=== PATIENT | female | born 1955 | race Caucasian/White ===

== ENCOUNTER → 2017-07-26 | Day surgery (SDC) | payer BC ==
[2017-07-25 14:22] LABS: ANION GAP 17.5 mmol/L (8-16); BLOOD UREA NITROGEN 14 mg/dL (7-26); BUN/CREATININE RATIO 15 (6-25); CALCIUM 9.9 mg/dL (8.4-10.2); CARBON DIOXIDE 22 mmol/L (22-29); CHLORIDE 104 mmol/L (98-107); CREATININE, SERUM 0.92 mg/dL (0.57-1.11); EST GLOMERULAR FILTRATION RATE > 60 ML/MIN (60-); GLUCOSE 268 mg/dL (74-118); POTASSIUM 4.5 mmol/L (3.5-5.1); SODIUM 139 mmol/L (136-145)
[~2017-07-26] MED LIST: BUPIVACAINE HCL 0.5% 10ML MPF VIAL INJ ONE; BYSTOLIC5 MG PO; CITALOPRAM HBR20 MG PO; FENTANYL CITRATE/PF 100MCG/2 ML INJ ONE; FOLIC ACID1 MG PO; GENTAMICIN 80MG/NS 100 ML 200 ML IV ONE; HUMIRA; INSULIN REGULAR, HUMAN 100 UNIT/1 ML 3ML VIAL ONE; LEVOTHYROXINE200 MCG PO; LIDOCAINE 2% /EPINEPHRINE 20 ML SDV INJ ONE; LIDOCAINE HCL 2% LOCAL INJ 5 ML SDV VIAL INJ ONE; LOSARTAN POTASS25 MG PO; MEPERIDINE HCL INJ 50 MG/ML INJ ONE; MIDAZOLAM HCL 2 MG/2 ML VIAL ONE; MONTELUKAST SOD10 MG PO; NOVOLIN INJ; NOVOLOG100 UNITS1 INJ; OXYBUTYNIN CHLOR5 MG PO; PROBIOTIC PO; PROPOFOL IV EMULSION 10 MG/ML 20 ML VIAL ONE; SIMVASTATIN10 MG PO; VANCOMYCIN 1GM/NS 250 ML 250 ML ONE; VERAPAMIL ER120 MG PO; VITAMIN D PO
--- NOTE | 2017-09-22 06:47 | Operative Report ---
DATE OF PROCEDURE: July 26, 2017 PREOPERATIVE DIAGNOSIS: Refractory urge incontinence. POSTOPERATIVE DIAGNOSIS: Refractory urge incontinence. OPERATIONS PERFORMED 1. Complete InterStim system implantation with incision and implantation of tined quadripolar lead electrodes into the right foramen S3. 2. Fluoroscopic guidance for needle placement. 3. Subcutaneous implantation of sacral nerve neurostimulator. 4. Electronic analysis and complex programming. 5. Implantation of tined quadripolar lead electrodes into the left foramen S3. 6. Removal of tined quadripolar electrodes from the left foramen S3. ANESTHESIA: General. COMPLICATIONS: None. CLINICAL SUMMARY: Jaycee Soto is a 62-year-old woman with refractory urge incontinence. She has failed multiple medications, as well as behavioral therapy. She underwent InterStim testing percutaneously in the office and had an excellent response. She elected to proceed with implantation as planned. She is aware of the risks of bleeding, infection, injury to adjacent structures, persistent incontinence, need for additional procedures, and the fact that she will not be able to undergo MRI testing. She understood all these risks and elected to proceed. OPERATIVE PROCEDURE IN DETAIL: Informed consent was verified. Jaycee Soto was properly identified and taken to the operating room, and placed on the operating table in the prone position with all pressure points carefully well-padded. Pillows were placed under the lower abdomen to flatten the sacrum and under the shins to allow the toes to dangle freely. The patient's back and buttocks were prepared and draped in the usual sterile fashion. Marcaine and lidocaine with epinephrine were utilized in combination. A needle was then introduced into the left foramen S3. Depth of the needle was confirmed and adjusted fluoroscopically. Proper needle position was confirmed with direct observation and lifting of the perineum or "bellowing" and observation with plantar flexion of the great toe utilizing the test stimulator box. The needle stylette was then removed. The directional guidewire was then placed and confirmed fluoroscopically. The foramen needle was then removed. An incision was then made peripherally to the directional guidewire through the fascial layer. The dilator and introducer sheath were then placed over the directional guidewire and directed into the foramen until the opaque marker of the dilator was seen midway through the sacrum. The needle stylette was removed and directional guidewire was then placed and confirmed fluoroscopically. The foramen needle was then removed. An incision was then made peripherally to the directional guidewire. The dilator and introducer sheath were then placed over the directional guidewire and directed into the foramen until the opaque marker of the dilator was seen midway through the sacrum. The dilator and obturator was unlocked and removed. The lead was then placed through the introducer sheath to the 1st white line. Position was checked fluoroscopically. The lead was then further introduced until 3 electrodes were visible below the sacrum. Each lead then tested with the above responses. After satisfactory position was confirmed under continuous fluoroscopy, the introducer sheath was retracted partially. Each lead was then tested. At this point in time, although we had an excellent response with the initial testing of the needle, the lead did not seem to elicit the appropriate responses in the same degree. We felt uneasy about this lead being less than ideal. Therefore, decided at this point in time to explant the lead we just put in the patient and removed the introducer sheath as well. This entire maneuver with introducing of a new needle was now done in the right hand side. We followed all the same steps on the right hand side. However, once the lead was then placed through the introducer sheath, we had excellent responses from all 4 leads. Thus, we were satisfied that this was a fa superior lead placement. Under continuous fluoroscopy, the introducer sheath was retracted thus deploying the lead tines into the parasacral tissue. Further incision was then made in the subcutaneous tissues on the right hand side posterior to the iliac crest, and a pocket was created. Hemostasis was verified and achieved with electrocautery. Tunneling tool was then utilized to bring the lead to the pocket site. The lead was then cleansed of bodily fluids thoroughly with sterile water and it was dried thoroughly, and then placed into the pulse generator header with the metal bands aligned and the blue tip clearly visible in the distal portion of the pulse generator header. The single set screw was tightened with a hex wrench. Copious irrigation was performed of all 3 incisions. The pulse generator was then placed in the subcutaneous pocket and the programming head was then placed over the implanted neurostimulator. All impedance parameters were within acceptable limits in all leads. We then approximated all incisions in 2 layers utilizing absorbable suture. Mastisol and Steri-Strips were applied. Bio-occlusive dressings were applied. The patient was uneventfully reversed from anesthesia and taken to the recovery room in stable condition. There were no complications to the procedure. The patient tolerated the procedure well. Sponge, needle and instrument counts were correct times 2 at the end of the case. Estimated blood loss was minimal. Explicit postoperative instructions were given. Utilizing the clinician javascript programmer, the patient was programmed to the lead of optimum sensation and given explicit instructions on utilizing the patient javascript programmer prior to discharge. Job#: [id number] RI cc: DR. PRABHA MOREAU
--- NOTE | 2017-09-22 07:07 | Operative Report ---
DATE OF PROCEDURE: July 26, 2017 ADDENDUM The needle stylette was removed and directional guidewire was then placed and confirmed fluoroscopically. The foramen needle was then removed. An incision was then made peripherally to the directional guidewire. The dilator and introducer sheath were then placed over the directional guidewire and directed into the foramen until the opaque marker of the dilator was seen midway through the sacrum. The dilator and obturator was unlocked and removed. The lead was then placed through the introducer sheath to the 1st white line. Position was checked fluoroscopically. The lead was then further introduced until 3 electrodes were visible below the sacrum. Each lead then tested with the above responses. After satisfactory position was confirmed under continuous fluoroscopy, the introducer sheath was retracted partially. Each lead was then tested. At this point in time, although we had an excellent response with the initial testing of the needle, the lead did not seem to elicit the appropriate responses in the same degree. We felt uneasy about this lead being less than ideal. Therefore, decided at this point in time to explant the lead we just put in the patient and removed the introducer sheath as well. This entire maneuver with introducing of a new needle was now done in the right hand side. We followed all the same steps on the right hand side. However, once the lead was then placed through the introducer sheath, we had excellent responses from all 4 leads. Thus, we were satisfied that this was a fa superior lead placement. Under continuous fluoroscopy, the introducer sheath was retracted thus deploying the lead tines into the parasacral tissue. Further incision was then made in the subcutaneous tissues on the right hand side posterior to the iliac crest, and a pocket was created. Hemostasis was verified and achieved with electrocautery. Tunneling tool was then utilized to bring the lead to the pocket site. The lead was then cleansed of bodily fluids thoroughly with sterile water and it was dried thoroughly, and then placed into the pulse generator header with the metal bands aligned and the blue tip clearly visible in the distal portion of the pulse generator header. The single set screw was tightened with a hex wrench. Copious irrigation was performed of all 3 incisions. The pulse generator was then placed in the subcutaneous pocket and the programming head was then placed over the implanted neurostimulator. All impedance parameters were within acceptable limits in all leads. We then approximated all incisions in 2 layers utilizing absorbable suture. Mastisol and Steri-Strips were applied. Bio-occlusive dressings were applied. The patient was uneventfully reversed from anesthesia and taken to the recovery room in stable condition. There were no complications to the procedure. The patient tolerated the procedure well. Sponge, needle and instrument counts were correct times 2 at the end of the case. Estimated blood loss was minimal. Explicit postoperative instructions were given. Utilizing the clinician mastercam programmer, the patient was programmed to the lead of optimum sensation and given explicit instructions on utilizing the patient mastercam programmer prior to discharge. Job#: [id number] TARA
== END | disposition home or self-care (01) ==
LOC: OR 09:09
PROVIDERS: ATTEND Urology
DX: N39.41 Urge incontinence (principal); N32.81 Overactive bladder; R35.1 Nocturia; G47.33 Obstructive sleep apnea (adult) (pediatric); I10 Essential (primary) hypertension; E11.9 Type 2 diabetes mellitus without complications; J45.909 Unspecified asthma, uncomplicated; M06.9 Rheumatoid arthritis, unspecified; E03.9 Hypothyroidism, unspecified; K21.9 Gastro-esophageal reflux disease without esophagitis; E66.01 Morbid (severe) obesity due to excess calories; F41.9 Anxiety disorder, unspecified; Z01.812 Encounter for preprocedural laboratory examination; Z79.4 Long term (current) use of insulin; Z68.43 Body mass index [BMI] 50.0-59.9, adult
CPT/HCPCS: 64581; 64590; 95972; C1778; L8679; 36415; 76001; 80048; 82948; J1580; J2001; J2175; J2250; J3370

== ENCOUNTER → 2017-12-12 | Outpatient (CLI) | payer BC ==
[~2017-12-12] MED LIST changes: -BUPIVACAINE HCL 0.5% 10ML MPF VIAL INJ ONE; -FENTANYL CITRATE/PF 100MCG/2 ML INJ ONE; -GENTAMICIN 80MG/NS 100 ML 200 ML IV ONE; -INSULIN REGULAR, HUMAN 100 UNIT/1 ML 3ML VIAL ONE; -LIDOCAINE 2% /EPINEPHRINE 20 ML SDV INJ ONE; -LIDOCAINE HCL 2% LOCAL INJ 5 ML SDV VIAL INJ ONE; -MEPERIDINE HCL INJ 50 MG/ML INJ ONE; -MIDAZOLAM HCL 2 MG/2 ML VIAL ONE; -PROPOFOL IV EMULSION 10 MG/ML 20 ML VIAL ONE; -VANCOMYCIN 1GM/NS 250 ML 250 ML ONE
--- NOTE | 2017-12-12 15:53 | Diagnostic Imaging Report ---
PROCEDURE:X-RAY PELVIS, AP VIEW COMPARISON:None. INDICATIONS:NOCTURIA FINDINGS: Normal mineralization. No acute, displaced fracture or dislocation. Left total hip replacement. Moderate degenerative changes in the right hip joint. Mild degenerative changes in bilateral sacroiliac joints. Partially visualized neural stimulator projecting in the right pelvic/gluteal soft tissues, with wire traversing the right S3-S4 neural foramen. Pelvic phleboliths. CONCLUSION: Partially visualized neural stimulator projecting in the right pelvic/gluteal soft tissues, with wire traversing the right S3 neural foramen. Jaron Dougherty M.D. Dictated by: Jaron Dougherty M.D. on 12/12/2017 at 15:57 Electronically approved by: Jaron Dougherty M.D. on 12/12/2017 at 15:57
--- NOTE | 2017-12-12 15:54 | Diagnostic Imaging Report ---
PROCEDURE:SACRUM X-RAY INDICATION:Nocturia COMPARISON:None. FINDINGS: No acute bony abnormalities. Degenerative changes in the sacroiliac joints. Degenerative disc and joint changes at L5-S1. Partially visualized neural stimulator with wire traversing the right S3 neural foramen. Pelvic phleboliths. Partially visualized left total hip replacement. CONCLUSION: Partially visualized neural stimulator with wire traversing the right S3 neural foramen. Jaron Dougherty M.D. Dictated by: Jaron Dougherty M.D. on 12/12/2017 at 15:59 Electronically approved by: Jaron Dougherty M.D. on 12/12/2017 at 15:59
== END ==
LOC: RAD 14:36
PROVIDERS: ATTEND Urology
DX: R35.1 Nocturia (principal); N32.81 Overactive bladder; R81 Glycosuria
CPT/HCPCS: 72170; 72220

== ENCOUNTER → 2019-02-23 | Outpatient (CLI) | payer BC ==
--- NOTE | 2019-02-23 12:15 | Diagnostic Imaging Report ---
EXAMINATION: PELVIS AP 1-2 VIEWS, SACRUM X-RAY INDICATION: Urinary incontinence COMPARISON: Pelvic and sacrum radiographs of 12/12/2017 FINDINGS: AP images of the pelvis and AP and lateral images of the sacrum were obtained. Again seen is a right implanted stimulator device. Compared to the pelvic radiograph of 12/12/2017, there is slightly different configuration of the lead, which now forms several loops distally. No acute fracture or dislocation. Status post left total hip replacement. Moderate degenerative changes of the right hip joint. Phleboliths in the pelvis. IMPRESSION: Slight change in lead configuration of right implanted neurostimulator device. Otherwise, no significant interval change. Signed by: Ld Trivedi MD on 02/23/2019 12:12 PM
== END ==
LOC: RAD 11:19
PROVIDERS: ATTEND Urology
DX: N32.81 Overactive bladder (principal); N39.41 Urge incontinence
CPT/HCPCS: 72170; 72220

== ENCOUNTER → 2019-11-27 | Day surgery (SDC) | payer BC, OTHER ==
[2019-11-24 16:16] LABS: ANION GAP 17.1 mmol/L (8-16); BLOOD UREA NITROGEN 10 mg/dL (7-26); BUN/CREATININE RATIO 11 (6-25); CALCIUM 9.2 mg/dL (8.4-10.2); CARBON DIOXIDE 21 mmol/L (22-29); CHLORIDE 104 mmol/L (98-107); CREATININE, SERUM 0.89 mg/dL (0.57-1.11); EST GLOMERULAR FILTRATION RATE > 60 ML/MIN (60-); POTASSIUM 4.1 mmol/L (3.5-5.1); SODIUM 138 mmol/L (136-145)
[2019-11-24 16:21] LABS: GLUCOSE 416 mg/dL (74-118)
[~2019-11-27] MED LIST changes: +B&O 60MG R/S 60 MG SUPP PR ONE; +BOTULINUM TOXIN TYPE A 100 UNIT VIAL IM ONE; +FENTANYL CITRATE/PF 100MCG/2 ML INJ ONE; +GENTAMICIN 80MG/NS 100 ML 200 ML IV ONE; +INSULIN REGULAR, HUMAN 100 UNIT/1 ML 3ML VIAL ONE; +IOPAMIDOL 300MG/ML 50ML INFUS..BTL IV ONE; +LIDOCAINE HCL 2% LOCAL INJ 5 ML SDV VIAL INJ ONE; +LIPITOR20 MG PO; +MIDAZOLAM HCL 2 MG/2 ML VIAL ONE; +ONDANSETRON HCL INJ 2MG/ML 2ML 2 MG/ML VIAL ONE; +PROAIR HFA INH8.5 GM INH; +PROBIOTIC & AC1 EACH PO; +PROPOFOL IV EMULSION 10 MG/ML 20 ML VIAL ONE; +SEVOFLURANE INHAL SOLN 250 ML PEN BTL ONE; +VITAMIN D350 MCG PO
[2019-11-27 17:20] VITALS: BP 126/89
--- NOTE | 2020-01-04 03:51 | Operative Report ---
DATE OF PROCEDURE: 11/27/2019 SURGEON: Daniel Cruz MD PREOPERATIVE DIAGNOSES: 1. Refractory urge incontinence. 2. Urinary tract infections. POSTOPERATIVE DIAGNOSES: 1. Refractory urge incontinence. 2. Urinary tract infections. 3. Grade 1 cystocele. 4. Grade 3 rectocele. 5. Atrophic (senile) vaginitis. OPERATIONS PERFORMED: 1. Cystourethroscopy with bilateral ureteral catheterization and retrograde ureteropyelography (separate procedure performed for the urinary tract infections). 2. Interpretation of retrograde ureteropyelography. 3. Supervision of fluoroscopy, no radiologist present. 4. Cystourethroscopy with intravesical injection of Botox (separate procedure performed in the refractory urge incontinence). 5. Pelvic examination under anesthesia. ANESTHESIA: General. COMPLICATIONS: None. CLINICAL SUMMARY: Jaycee Soto is a 64-year-old woman with refractory urge incontinence. She is brought for the above procedure. She has had excellent success with prior injection. She is aware of the risks of bleeding, infection, injury to adjacent structures, need for additional procedures and elected to proceed. OPERATIVE PROCEDURE IN DETAIL: Informed consent was verified. Jaycee Soto was properly identified, taken to the operating room, placed on the cystoscopy table in supine position. Anesthesia was uneventfully begun. The patient was then carefully and gently repositioned in dorsal lithotomy position with all pressure points well padded. Her genitalia were prepared and draped in the usual sterile fashion. The cystoscope sheath with the obturator in place was atraumatically inserted into the patient's urethra and the bladder was drained. Panendoscopy of the urinary bladder revealed no suspicious lesions, no tumors, no stones, and no diverticula, normally positioned configured ureteral orifices were identified. Ureteral catheter was used to cannulate each ureter and retrograde ureteropyelograms were performed. Interpretation of retrograde ureteropyelography contrast was instilled in retrograde fashion bilaterally. There were no tumors, no stones, no diverticula. Unobstructed drainage was observed bilaterally fluoroscopically. 100 units of Botox were dissolved in 10 mL of sterile saline. There were injected in 0.5 mL aliquots in an even distribution throughout the supratrigonal bladder. The patient's bladder was drained. Cystoscope was withdrawn. Pelvic examination under anesthesia revealed a grade 1 cystocele, grade 3 rectocele, there was atrophic (senile) vaginitis. No abnormal palpable pelvic masses could be appreciated. There were no obvious mucosal lesions. The patient was then uneventfully reversed from anesthesia and taken to recovery room in stable condition. There were no complications to the procedure. She tolerated the procedure well. Explicit postop instructions were given. We will follow the patient up in the office. Daniel MD SHALOM Cruz/STUART /[id number]
== END | disposition home or self-care (01) ==
LOC: OR 10:55
PROVIDERS: ATTEND Urology
DX: N39.41 Urge incontinence (principal); N39.0 Urinary tract infection, site not specified; N81.10 Cystocele, unspecified; N81.6 Rectocele; N95.2 Postmenopausal atrophic vaginitis; M06.9 Rheumatoid arthritis, unspecified; F41.9 Anxiety disorder, unspecified; J45.909 Unspecified asthma, uncomplicated; G47.33 Obstructive sleep apnea (adult) (pediatric); I10 Essential (primary) hypertension; E11.9 Type 2 diabetes mellitus without complications; K21.9 Gastro-esophageal reflux disease without esophagitis; Z88.1 Allergy status to other antibiotic agents; Z88.0 Allergy status to penicillin; Z88.2 Allergy status to sulfonamides; Z88.8 Allergy status to other drugs, medicaments and biological substances; Z01.810 Encounter for preprocedural cardiovascular examination; Z01.812 Encounter for preprocedural laboratory examination; Z11.59 Encounter for screening for other viral diseases; Z79.4 Long term (current) use of insulin
CPT/HCPCS: 36415 ×2; 52005; 52287; 74420; 80048; 82948; 87635; 93005; C1758; J0587; J1580; J1817; J2001; J2250; J2405; J2704; J3010; Q9967; U0002

== ENCOUNTER → 2020-10-28 | Day surgery (SDC) | payer MEDICARE, OTHER ==
[~2020-10-28] MED LIST changes: +DEXAMETHASONE SOD PHOS INJ 4 MG/ML VIAL ONE; -MIDAZOLAM HCL 2 MG/2 ML VIAL ONE; +POVIDONE IODINE 0.05% 0.05 % ML PO ONE; +TRESIBA100 UNIT/1 SQ
[2020-10-28 13:40] VITALS: BP 113/60
== END | disposition home or self-care (01) ==
LOC: OR 09:39
PROVIDERS: ATTEND Urology
DX: N39.41 Urge incontinence (principal); N39.0 Urinary tract infection, site not specified; N81.10 Cystocele, unspecified; N81.6 Rectocele; N95.2 Postmenopausal atrophic vaginitis; N32.89 Other specified disorders of bladder; R35.1 Nocturia; N39.44 Nocturnal enuresis; R80.9 Proteinuria, unspecified; N32.81 Overactive bladder; R81 Glycosuria; G47.33 Obstructive sleep apnea (adult) (pediatric); J45.909 Unspecified asthma, uncomplicated; I10 Essential (primary) hypertension; I49.8 Other specified cardiac arrhythmias; E11.9 Type 2 diabetes mellitus without complications; E66.9 Obesity, unspecified; E03.9 Hypothyroidism, unspecified; K21.9 Gastro-esophageal reflux disease without esophagitis; E78.00 Pure hypercholesterolemia, unspecified; M06.9 Rheumatoid arthritis, unspecified; F32.9 Major depressive disorder, single episode, unspecified; F41.9 Anxiety disorder, unspecified; Z88.1 Allergy status to other antibiotic agents; Z88.0 Allergy status to penicillin; Z88.2 Allergy status to sulfonamides; Z88.8 Allergy status to other drugs, medicaments and biological substances; Z01.812 Encounter for preprocedural laboratory examination; Z01.818 Encounter for other preprocedural examination; Z20.822 Contact with and (suspected) exposure to COVID-19; Z79.4 Long term (current) use of insulin; Z68.43 Body mass index [BMI] 50.0-59.9, adult
CPT/HCPCS: 36415; 52005; 52287; 71046; 72220; 74420; 82948; C1758; J0587; J1100; J1580; J2001; J2405; J2704; J3010; Q9967; U0002; J1817

== ENCOUNTER → 2021-03-29 | Outpatient (CLI) | payer MEDICARE ==
[~2021-03-29] MED LIST changes: -B&O 60MG R/S 60 MG SUPP PR ONE; -BOTULINUM TOXIN TYPE A 100 UNIT VIAL IM ONE; -DEXAMETHASONE SOD PHOS INJ 4 MG/ML VIAL ONE; -FENTANYL CITRATE/PF 100MCG/2 ML INJ ONE; -GENTAMICIN 80MG/NS 100 ML 200 ML IV ONE; -INSULIN REGULAR, HUMAN 100 UNIT/1 ML 3ML VIAL ONE; +INSULIN REGULAR, HUMAN 100 UNIT/1 ML ONE; -IOPAMIDOL 300MG/ML 50ML INFUS..BTL IV ONE; +KEFLEX125 MG/5 M PO; +LEVOFLOXACIN 500MG/D5W 100ML 100 ML IV ONE; -LIDOCAINE HCL 2% LOCAL INJ 5 ML SDV VIAL INJ ONE; -ONDANSETRON HCL INJ 2MG/ML 2ML 2 MG/ML VIAL ONE; -POVIDONE IODINE 0.05% 0.05 % ML PO ONE; -PROPOFOL IV EMULSION 10 MG/ML 20 ML VIAL ONE; -SEVOFLURANE INHAL SOLN 250 ML PEN BTL ONE; +SODIUM CHLORIDE 0.9% 250ML 250 ML ONE; +Vancomycin IV 1 GM VIAL ONE
== END | disposition home or self-care (01) ==
LOC: RAD 03-28 11:04 → OR 09:30 → RAD 11:04 → EDSTATUS 12:00
PROVIDERS: ATTEND Urology
DX: T85.113A Breakdown (mechanical) of implanted electronic neurostimulator, generator, initial encounter (principal); Y83.8 Other surgical procedures as the cause of abnormal reaction of the patient, or of later complication, without mention of misadventure at the time of the procedure; Z01.812 Encounter for preprocedural laboratory examination; Z20.822 Contact with and (suspected) exposure to COVID-19; Z53.8 Procedure and treatment not carried out for other reasons
CPT/HCPCS: 36415; 82948; 93005; J1956; J3370; J7050; U0002; J1817